=== PATIENT | male | born 1950 | race Hispanic/Latino ===

== ENCOUNTER → 2018-09-01 | Outpatient (CLI) | payer OTHER, MEDICARE | END | disposition home or self-care (01) | LOC: OIH 09:28 | PROVIDERS: ATTEND Family Medicine | DX: I10 Essential (primary) hypertension (principal) | CPT/HCPCS: 71046 ==

== ENCOUNTER → 2023-06-10 | Outpatient (CLI) | payer OTHER, MEDICARE ==
[~2023-06-10] MED LIST: IOHEXOL-350 75 ML VIAL IV ONE
== END | disposition home or self-care (01) ==
LOC: RAH 10:37
PROVIDERS: ATTEND Family Medicine
DX: K76.0 Fatty (change of) liver, not elsewhere classified (principal); J44.9 Chronic obstructive pulmonary disease, unspecified; K86.89 Other specified diseases of pancreas; M47.815 Spondylosis without myelopathy or radiculopathy, thoracolumbar region; I70.90 Unspecified atherosclerosis
CPT/HCPCS: 74170; Q9967

== ENCOUNTER 2023-07-21 06:29 | Day surgery (SDC) | payer OTHER, MEDICARE ==
[2023-07-21] VITALS (11 sets, daily range): BP systolic 98–130; BP diastolic 60–80; PULSE 55–63; RESP 14–19
[~2023-07-21] VITALS: Ht 172.7 cm; Wt 59.0 kg
[~2023-07-21 06:29] MED LIST changes: +0.9%NACL 1000ML 1,000 ML IV ONE; -IOHEXOL-350 75 ML VIAL IV ONE
[2023-07-21] MEDS ORDERED: LOSA50TA64 PO (07:14)
[2023-07-21] MEDS ORDERED: PROPOFOL 10 MG/ML 20ML VIAL IV ONE ×2 (08:49→09:03)
== END 2023-07-21 10:30 | disposition home or self-care (01) ==
LOC: DAH 06:29 → ENDO 06:29
PROVIDERS: ATTEND Internal Medicine Gastroenterology
DX: R93.3 Abnormal findings on diagnostic imaging of other parts of digestive tract (principal); K86.89 Other specified diseases of pancreas; K31.A15 Gastric intestinal metaplasia without dysplasia, involving multiple sites; R10.13 Epigastric pain; K59.00 Constipation, unspecified; R63.4 Abnormal weight loss; K25.3 Acute gastric ulcer without hemorrhage or perforation; I10 Essential (primary) hypertension; Z79.01 Long term (current) use of anticoagulants; Z68.1 Body mass index [BMI] 19.9 or less, adult
CPT/HCPCS: 43238; J7030 ×3; J2704 ×2; A4620; A4215 ×3; A4223; A7002; A4222; A4221; A4663; A4606; J3490